=== PATIENT | female | born 1990 | race Caucasian/White ===

== ENCOUNTER 2018-03-18 16:00 | Emergency (ER) | payer SELFPAY ==
[~2018-03-18] VITALS: Ht 167.6 cm; Wt 75.0 kg
[2018-03-18 18:02] LABS: BASOPHILS % 0.8 % (0.0-2.0); EOSINOPHILS % 0.6 % (0.0-5.0); HEMATOCRIT. 40.2 % (36.0-48.0); HEMOGLOBIN. 13.6 g/dL (12.0-16.0); LYMPHOCYTES % 23.6 % (20.0-50.0); MEAN CORPUSCULAR HEMOGLOBIN 29.1 pg (28.0-32.0); MEAN CORPUSCULAR VOLUME 85.9 fL (81.0-99.0); MEAN PLATELET VOLUME 7.3 fl (7.4-10.4); MONOCYTES % 4.9 % (2.0-8.0); NEUTROPHILS % 70.1 % (40.0-76.0); PLATELET 371 x1000/uL (130-400); RED BLOOD CELL COUNT 4.68 mill/uL (4.2-5.4)
[2018-03-18 18:11] LABS: CHLORIDE 105 mEq/L (98-107)
[2018-03-18] MEDS ORDERED: IBUPROFEN 600MG TABLET PO ONE (18:30)
[2018-03-18 18:40] LABS: CLARITY URINE CLOUDY (CLEAR); COLOR URINE YELLOW (YELLOW); KETONES URINE NEGATIVE (NEGATIVE); LEUKOCYTE ESTERASE URINE 1+ (NEGATIVE); NITRITE URINE NEGATIVE (NEGATIVE); OCCULT BLOOD URINE NEGATIVE (NEGATIVE); PH URINE 7.5 (4.5-8.0); PROTEIN URINE NEGATIVE (NEGATIVE); SPECIFIC GRAVITY URINE 1.017 (1.005-1.030); UROBILINOGEN URINE 0.2 E.U./dL (0.2-1.0)
[2018-03-18] MEDS ORDERED: METHYLPREDNISOLONE SOD SUCC 125 MG/2 ML VIAL IM ONE (19:15)
[2018-03-18 19:16] VITALS: BP 126/87
== END 2018-03-18 19:19 | disposition home or self-care (01) ==
LOC: ER 16:00
DX: R55 Syncope and collapse (principal); N30.00 Acute cystitis without hematuria; R10.11 Right upper quadrant pain; R10.12 Left upper quadrant pain; M32.9 Systemic lupus erythematosus, unspecified
CPT/HCPCS: 36415; 80053; 81003; 81025; 85025; 93005; 96372; 99285; J2930